=== PATIENT | female | born 1970 ===

== ENCOUNTER 2018-01-06 14:53 | Emergency (ER) | payer MEDICAID, OTHER ==
[2018-01-06 15:39] VITALS: BP 129/85; PULSE 100; RESP 18; TEMP 98.4; O2SAT 99
--- NOTE | 2018-01-06 19:35 | ED PDOC ---
HPI: Allergic Reaction Time Seen by Provider: 01/06/18 17:19 Chief Complaint (Nursing): Abnormal Skin Integrity Chief Complaint (Provider): Abnormal Skin Integrity History Per: Patient History/Exam Limitations: no limitations Onset/Duration Of Symptoms: Hrs (8:30am) Current Symptoms Are (Timing): Still Present Associated Symptoms: Swelling Additional Complaint(s): 48 year old female presents to the ED stating she was attempting to spray the Benzocaine and Benzethonium antiseptic spray on her daughter around 8:30am and she sprayed her left 3rd digit. Immediately she developed bruise-like rashes on her fingers and there was swelling. Reports of mild soreness on finger. Denies numbness, pruritus, tingling, trauma, or breaking of skin. PMD: No Family Provider Past Medical History Reviewed: Historical Data, Nursing Documentation, Vital Signs Vital Signs: Last Vital Signs Temp 98.4 F 01/06/18 15:36 Pulse 100 H 01/06/18 15:36 Resp 18 01/06/18 15:36 BP 129/85 01/06/18 15:36 Pulse Ox 99 01/06/18 15:36 - Medical History PMH: Anemia, Hypothyroidism Denies: Chronic Kidney Disease - Family History Family History: States: CAD - Home Medications Home Medications: Ambulatory Orders Medication Instructions Recorded No Known Home Med 06/22/15 - Allergies Allergies/Adverse Reactions: Allergies Allergy/AdvReac Type Severity Reaction Status Date / Time Sulfa (Sulfonamide Allergy RASH Verified 01/06/18 15:36 Antibiotics) Review of Systems ROS Statement: Except As Marked, All Systems Reviewed And Found Negative Skin: Positive for: Rash (fingers). Negative for: Other (pruritus, tingling, trauma, or breaking of skin) Neurological: Negative for: Numbness Physical Exam - Reviewed Nursing Documentation Reviewed: Yes Vital Signs Reviewed: Yes - Physical Exam Appears: Positive for: Well, Non-toxic, No Acute Distress Head Exam: Positive for: ATRAUMATIC, NORMAL INSPECTION, NORMOCEPHALIC Pulses-Radial (L): 2+ Pulses-Radial (R): 2+ Extremity: Positive for: Normal ROM (no breaking skin integrity), Capillary Refill (less than 2 seconds all fingers), Other (rojas surface of left 3rd digit, middle phallyn extending slightly into proximal finger warm to touch) - ECG O2 Sat by Pulse Oximetry: 99 (RA) Pulse Ox Interpretation: Normal Disposition - Clinical Impression Clinical Impression: Irritant dermatitis - Patient ED Disposition Is Patient to be Admitted: No - Disposition Referrals: [facility] [Outside] Disposition: Routine/Home Disposition Time: 17:30 Condition: STABLE Additional Instructions: Follow up with your PMD in 2 days Return to ED immediately if symptoms worsen Instructions: Contact Dermatitis (DC) Forms: [employer] (Bulgarian) Print Language: GREEK Medical Decision Making Medical Decision Making: Time: 1718 Initial Plan: --Reevaluation Case discussed with poison control Lucina who states symptoms are more likely due to irritation vs. methemoglobinemia. Methemglobinemia is more likely if solution was ingestion. Also states bruising is more likely due to benzalkonium rather than benzocaine. Further reports that since symptoms began at 0830 adverse outcome is less likely due to prolonged time period. Patient was evaluated by Dr. Cooper who agree with care and treatment. Patient provided strict instruction to return to ED if numbness, tingling or bruising occurs. She was also provided with instruction on how to check for capillary refill and if capillary refill is not less than 2 seconds, then return to ED or if numbness , tingling develop or if bruising worsens. Scribe Attestation: Documented by Nathan Alexandra, acting as a scribe for Ever Fregoso PA-C Provider Scribe Attestation: All medical record entries made by the Scribe were at my direction and personally dictated by me. I have reviewed the chart and agree that the record accurately reflects my personal performance of the history, physical exam, medical decision making, and the department course for this patient. I have also personally directed, reviewed, and agree with the discharge instructions and disposition.
== END 2018-01-06 17:30 | disposition home or self-care (01) ==
LOC: H.ER 14:53
DX: L24.89 Irritant contact dermatitis due to other agents (principal); E03.9 Hypothyroidism, unspecified